=== PATIENT | female | born 1965 | race Caucasian/White ===

== ENCOUNTER 2017-08-28 02:32 | Inpatient (IN) | payer MEDICARE, MEDICAID ==
[~2017-08-28] VITALS: Ht 152.4 cm; Wt 110.7 kg
[~2017-08-28 02:32] MED LIST: ADVAIR 250/501 DISK INH; ALDACTONE25 MG PO; AMBIEN5 MG PO; ATROVENT 0.02%2.5 ML UPD; BENZTROPINE MESY2 MG PO; BROVANA15 MCG/2 M INH; CELEXA10 MG PO; COLACE100 MG PO; DEPAKOTE ER250 MG PO; EFFEXOR37.5 MG PO; ENULOSE10 G/15 ML PO; HALDOL5 MG PO; HUMULIN R100 U/ML SC; K-DUR20 MEQ PO; KLONOPIN0.5 MG PO; LASIX20 MG PO; LEVAQUIN500 MG PO; MEDROL DOSE PACK4 MG PO; MULTIPLE VITAMI1 TA1 PO; NEURONTIN 300300 MG PO; OXYBUTYNIN CHLOR5 MG PO; RISPERDAL3 MG PO; TYLENOL650 MG RC; VITAMIN D31000 UNI2 PO; ZYPREXA10 MG PO
[2017-08-28 03:09] LABS: BASOPHILS 0.2 % (0-2); EOSINOPHILS 0.5 % (0-7); HEMATOCRIT 43.9 % (36.0-48.0); HEMOGLOBIN 13.5 g/dL (12-16); IMMATURE GRANULOCYTES 2.1 % (0-5); LYMPHOCYTES 21.6 % (15-50); MCH 29.9 pg (26.0-34.0); MCHC 30.8 g/dL (31.0-37.0); MCV 97.3 fL (80.0-100.0); MONOCYTES 10.1 % (2-11); NEUTROPHILS 65.5 % (40-80); PLATELET COUNT 141 10x3/uL (130-400); RBC 4.51 10x6/uL (4.00-5.40); RDW 15.5 % (11.5-14.5); WBC 8.7 10x3/uL (4.8-10.8)
[2017-08-28 03:28] LABS: APPEARANCE CLEAR (CLEAR); BILIRUBIN NEGATIVE (NEGATIVE); COLOR YELLOW (YELLOW); GLUCOSE NEGATIVE (NEGATIVE); KETONE MODERATE mg/dL (NEGATIVE); NITRITE NEGATIVE (NEGATIVE); PROTEIN NEGATIVE (NEGATIVE); UROBILINOGEN NORMAL (NORMAL)
[2017-08-28 03:32] LABS: ALKALINE PHOSPHATASE 52 U/L (46-116); ALT (SGPT) 30 U/L (10-68); BILIRUBIN - TOTAL 0.37 mg/dL (0.2-1.3); CALC OSMOLALITY 282 mosm/kg (275-300); CALCIUM 8.3 mg/dL (8.5-10.1); CARBON DIOXIDE 36.3 mmol/L (21.0-32.0); CHLORIDE - SERUM 100 mmol/L (98-107); CREATININE - SERUM 0.8 mg/dL (0.6-1.3); GLUCOSE 119 mg/dL (74-106); POTASSIUM - SERUM 4.2 mmol/L (3.5-5.1); PROTEIN - SERUM 8.5 g/dL (6.4-8.2); SODIUM 142 mmol/L (136-145); UREA NITROGEN 9 mg/dL (7-18); eGFR NON AFRICAN AMERICAN 79 mL/min (90-120)
[2017-08-28 03:41] LABS: LIPASE 54 U/L (73-393); PRO BNP 129 pg/mL (0-125); VALPROIC ACID (DEPAKOTE) 59.6 ug/mL (50.0-100.0)
[2017-08-28 03:44] LABS: TROPONIN-I < 0.017 ng/mL (0.000-0.060)
[2017-08-28 03:44] LABS: UDS - AMPHET NEGATIVE QUAL (NEGATIVE); UDS - BARB NEGATIVE QUAL (NEGATIVE); UDS - BENZO NEGATIVE QUAL (NEGATIVE); UDS - COCAINE NEGATIVE QUAL (NEGATIVE); UDS - OPIATE NEGATIVE QUAL (NEGATIVE); UDS - PCP NEGATIVE QUAL (NEGATIVE); UDS - THC NEGATIVE QUAL (NEGATIVE)
[2017-08-28 04:00] VITALS: BP 159/104
[2017-08-28 09:15] VITALS: BP 123/48
[2017-08-28 11:48] VITALS: BP 100/81
[2017-08-28 13:22] LABS: APPEARANCE CLOUDY (CLEAR); BILIRUBIN NEGATIVE (NEGATIVE); COLOR RED (YELLOW); GLUCOSE NEGATIVE (NEGATIVE); KETONE NEGATIVE (NEGATIVE); NITRITE NEGATIVE (NEGATIVE); PROTEIN 3+ mg/dL (NEGATIVE); SPECIFIC GRAVITY 1.015 (1.005-1.020); UROBILINOGEN NORMAL (NORMAL)
[2017-08-28 13:23] LABS: BACTERIA FEW /hpf (NONE SEEN); EPITHELIAL CELLS 0-5 /hpf (0-5); RED CELLS - URINE 25-50 /hpf (0-5); WHITE CELLS - URINE 0-5 /hpf (0-5)
[2017-08-28 16:43] VITALS: BP 132/51
[2017-08-28 17:12] LABS: HEMOGLOBIN A1C 6.3 % (4.8-6.0)
[2017-08-28 21:26] VITALS: BP 144/66
[2017-08-29 01:03] VITALS: BP 140/55
[2017-08-29 04:54] VITALS: BP 140/70
[2017-08-29 06:04] LABS: BASOPHILS 0.1 % (0-2); EOSINOPHILS 0 % (0-7); HEMOGLOBIN 13.2 g/dL (12-16); IMMATURE GRANULOCYTES 2.3 % (0-5); LYMPHOCYTES 9.8 % (15-50); MCH 29.8 pg (26.0-34.0); NEUTROPHILS 83.8 % (40-80); PLATELET COUNT 166 10x3/uL (130-400); RBC 4.43 10x6/uL (4.00-5.40); RDW 15.5 % (11.5-14.5); WBC 9.7 10x3/uL (4.8-10.8)
[2017-08-29 06:05] LABS: MCV 99.3 fL (80.0-100.0)
[2017-08-29 07:02] LABS: ALBUMIN 2.7 g/dL (3.4-5.0); ALKALINE PHOSPHATASE 54 U/L (46-116); ALT (SGPT) 30 U/L (10-68); CALCIUM 8.2 mg/dL (8.5-10.1); CARBON DIOXIDE 37.7 mmol/L (21.0-32.0); CHLORIDE - SERUM 100 mmol/L (98-107); CREATININE - SERUM 0.7 mg/dL (0.6-1.3); MAGNESIUM - SERUM 2.4 mg/dL (1.8-2.4); PHOSPHOROUS 4.5 mg/dL (2.5-4.9); POTASSIUM - SERUM 4.3 mmol/L (3.5-5.1); PRO BNP 301 pg/mL (0-125); PROTEIN - SERUM 8.2 g/dL (6.4-8.2); SODIUM 141 mmol/L (136-145); THYROID STIMULATING HORMONE 0.65 uIU/mL (0.36-3.74); UREA NITROGEN 9 mg/dL (7-18); eGFR NON AFRICAN AMERICAN > 90 mL/min (90-120)
[2017-08-29 07:03] LABS: CALC OSMOLALITY 284 mosm/kg (275-300); GLUCOSE 194 mg/dL (74-106)
[2017-08-29 07:39] VITALS: BP 110/56
[2017-08-29 14:32] VITALS: Ht 152.4 cm; Wt 110.7 kg
[2017-08-29 15:59] VITALS: BP 130/66
[2017-08-29 19:00] VITALS: BP 128/62
[2017-08-30] VITALS: BP 118/70
[2017-08-30 04:00] VITALS: BP 133/73
[2017-08-30 06:25] LABS: BASOPHILS 0.1 % (0-2); EOSINOPHILS 0 % (0-7); HEMATOCRIT 44.8 % (36.0-48.0); HEMOGLOBIN 13.7 g/dL (12-16); IMMATURE GRANULOCYTES 1.9 % (0-5); MCH 29.8 pg (26.0-34.0); MCHC 30.6 g/dL (31.0-37.0); MCV 97.6 fL (80.0-100.0); MEAN PLATELET VOLUME 9.8 fL (7.4-10.4); MONOCYTES 8.5 % (2-11); NEUTROPHILS 75.5 % (40-80); PLATELET COUNT 195 10x3/uL (130-400); RBC 4.59 10x6/uL (4.00-5.40); RDW 15.5 % (11.5-14.5); WBC 10.4 10x3/uL (4.8-10.8)
[2017-08-30 06:38] LABS: ALKALINE PHOSPHATASE 53 U/L (46-116); CALC OSMOLALITY 282 mosm/kg (275-300); CALCIUM 8.5 mg/dL (8.5-10.1); CARBON DIOXIDE 36.8 mmol/L (21.0-32.0); CHLORIDE - SERUM 100 mmol/L (98-107); CREATININE - SERUM 0.8 mg/dL (0.6-1.3); GLUCOSE 150 mg/dL (74-106); POTASSIUM - SERUM 3.7 mmol/L (3.5-5.1); PROTEIN - SERUM 8.4 g/dL (6.4-8.2); SODIUM 141 mmol/L (136-145); UREA NITROGEN 11 mg/dL (7-18); eGFR NON AFRICAN AMERICAN 79 mL/min (90-120)
[2017-08-30 06:39] LABS: ALT (SGPT) 38 U/L (10-68)
[2017-08-30 08:06] VITALS: BP 115/56
[2017-08-30 12:39] VITALS: BP 161/58
[2017-08-30 15:55] VITALS: BP 123/67
[2017-08-30 20:00] VITALS: BP 145/76
[2017-08-31] VITALS (7 sets, daily range): BP systolic 108–142; BP diastolic 54–75
[2017-08-31 06:29] LABS: BASOPHILS 0.1 % (0-2); EOSINOPHILS 0 % (0-7); HEMOGLOBIN 13.9 g/dL (12-16); MCH 29.9 pg (26.0-34.0); MCHC 30.9 g/dL (31.0-37.0); MCV 96.8 fL (80.0-100.0); MEAN PLATELET VOLUME 10.4 fL (7.4-10.4); MONOCYTES 6.2 % (2-11); NEUTROPHILS 77.7 % (40-80); PLATELET COUNT 198 10x3/uL (130-400); RBC 4.65 10x6/uL (4.00-5.40); RDW 15.9 % (11.5-14.5)
[2017-08-31 06:57] LABS: ALBUMIN 2.8 g/dL (3.4-5.0); ALKALINE PHOSPHATASE 47 U/L (46-116); ALT (SGPT) 37 U/L (10-68); CALC OSMOLALITY 288 mosm/kg (275-300); CARBON DIOXIDE 38.2 mmol/L (21.0-32.0); CHLORIDE - SERUM 100 mmol/L (98-107); CREATININE - SERUM 0.8 mg/dL (0.6-1.3); GLUCOSE 169 mg/dL (74-106); POTASSIUM - SERUM 3.6 mmol/L (3.5-5.1); PROTEIN - SERUM 7.8 g/dL (6.4-8.2); SODIUM 142 mmol/L (136-145); eGFR NON AFRICAN AMERICAN 79 mL/min (90-120)
[2017-08-31 07:02] LABS: UREA NITROGEN 17 mg/dL (7-18)
[2017-09-01 04:00] VITALS: BP 116/51
[2017-09-01 06:14] LABS: BASOPHILS 0.1 % (0-2); EOSINOPHILS 0.1 % (0-7); HEMATOCRIT 47.6 % (36.0-48.0); HEMOGLOBIN 14.6 g/dL (12-16); IMMATURE GRANULOCYTES 1.4 % (0-5); LYMPHOCYTES 25.5 % (15-50); MCH 29.7 pg (26.0-34.0); MCHC 30.7 g/dL (31.0-37.0); MCV 96.9 fL (80.0-100.0); MEAN PLATELET VOLUME 9.6 fL (7.4-10.4); MONOCYTES 12.2 % (2-11); NEUTROPHILS 60.7 % (40-80); RBC 4.91 10x6/uL (4.00-5.40); RDW 15.8 % (11.5-14.5)
[2017-09-01 06:17] LABS: PLATELET COUNT 154 10x3/uL (130-400)
[2017-09-01 06:47] LABS: ALBUMIN 2.7 g/dL (3.4-5.0); ALKALINE PHOSPHATASE 38 U/L (46-116); ALT (SGPT) 40 U/L (10-68); BILIRUBIN - TOTAL 0.42 mg/dL (0.2-1.3); CALCIUM 8.1 mg/dL (8.5-10.1); CHLORIDE - SERUM 102 mmol/L (98-107); CREATININE - SERUM 0.8 mg/dL (0.6-1.3); PROTEIN - SERUM 7.3 g/dL (6.4-8.2); SODIUM 144 mmol/L (136-145); UREA NITROGEN 19 mg/dL (7-18); eGFR NON AFRICAN AMERICAN 79 mL/min (90-120)
[2017-09-01 06:51] LABS: CALC OSMOLALITY 288 mosm/kg (275-300); GLUCOSE 106 mg/dL (74-106)
[2017-09-01 08:47] VITALS: BP 116/48
[2017-09-01 12:33] VITALS: BP 112/65
[2017-09-01 16:28] VITALS: BP 111/62
[2017-09-01 21:44] VITALS: BP 116/64
[2017-09-02 01:15] VITALS: BP 105/56
[2017-09-02 05:58] VITALS: BP 99/57
[2017-09-02 07:31] LABS: BASOPHILS 0.1 % (0-2); EOSINOPHILS 0.4 % (0-7); HEMATOCRIT 46.8 % (36.0-48.0); HEMOGLOBIN 14.3 g/dL (12-16); IMMATURE GRANULOCYTES 1.1 % (0-5); LYMPHOCYTES 26.3 % (15-50); MCH 29.7 pg (26.0-34.0); MCHC 30.6 g/dL (31.0-37.0); MCV 97.3 fL (80.0-100.0); MEAN PLATELET VOLUME 9.6 fL (7.4-10.4); MONOCYTES 9.2 % (2-11); NEUTROPHILS 62.9 % (40-80); PLATELET COUNT 149 10x3/uL (130-400); RBC 4.81 10x6/uL (4.00-5.40); RDW 15.6 % (11.5-14.5); WBC 7.4 10x3/uL (4.8-10.8)
[2017-09-02 07:49] LABS: ALBUMIN 2.8 g/dL (3.4-5.0); ANION GAP 4.7 mmol/L (8-16); BILIRUBIN - TOTAL 0.52 mg/dL (0.2-1.3); CARBON DIOXIDE 39.8 mmol/L (21.0-32.0); CREATININE - SERUM 0.9 mg/dL (0.6-1.3); POTASSIUM - SERUM 3.5 mmol/L (3.5-5.1); PROTEIN - SERUM 6.9 g/dL (6.4-8.2)
[2017-09-02 08:06] VITALS: BP 113/65
[2017-09-02 11:18] VITALS: BP 110/47
[2017-09-02] MEDS ORDERED: ALDACTONE25 MG PO (12:29)
[2017-09-02] MEDS ORDERED: LASIX20 MG PO (12:31)
[2017-09-02] MEDS ORDERED: PULMICORT0.5 MG/21 UPD (12:31)
[2017-09-02 15:42] VITALS: BP 97/55
== END 2017-09-02 18:06 | DRG 193 ==
LOC: D.ER 02:32 → D.M2 04:49
PROVIDERS: Family Medicine; Internal Medicine Pulmonary Disease
PROC: 0T9B70Z Drainage of Bladder with Drainage Device, Via Natural or Artificial Opening (ICD-10-PCS; principal; 2017-08-28)
DX: J18.9 Pneumonia, unspecified organism (principal); J96.22 Acute and chronic respiratory failure with hypercapnia; J96.21 Acute and chronic respiratory failure with hypoxia; I50.33 Acute on chronic diastolic (congestive) heart failure; J44.0 Chronic obstructive pulmonary disease with (acute) lower respiratory infection; J44.1 Chronic obstructive pulmonary disease with (acute) exacerbation; Z68.43 Body mass index [BMI] 50.0-59.9, adult; J98.11 Atelectasis; E87.2 Acidosis; E11.9 Type 2 diabetes mellitus without complications; I11.0 Hypertensive heart disease with heart failure; Z66 Do not resuscitate; F20.9 Schizophrenia, unspecified; E66.01 Morbid (severe) obesity due to excess calories; G47.33 Obstructive sleep apnea (adult) (pediatric); E78.5 Hyperlipidemia, unspecified; I34.0 Nonrheumatic mitral (valve) insufficiency; F22 Delusional disorders

== ENCOUNTER 2019-01-11 08:49 | Emergency (ER) | payer MEDICARE, MEDICAID ==
[~2019-01-11] VITALS: Ht 152.4 cm; Wt 118.2 kg
[~2019-01-11 08:49] MED LIST changes: +PULMICORT0.5 MG/21 UPD
[2019-01-11 08:55] VITALS: Ht 152.4 cm; Wt 118.2 kg
[2019-01-11] MEDS ORDERED: ACETAMINOPHEN500 M1 PO (09:17)
[2019-01-11] MEDS ORDERED: ADVAIR HFA 230-12 GM INH (09:19)
[2019-01-11] MEDS ORDERED: BAYER CHEWABLE81 MG PO (09:20)
[2019-01-11] MEDS ORDERED: TEGRETOL200 MG PO (09:22)
[2019-01-11] MEDS ORDERED: IPRAT-ALBUT 0.5-3 ML UPD (09:23)
[2019-01-11] MEDS ORDERED: FISH OIL 1,0001 CA1 PO (09:24)
[2019-01-11] MEDS ORDERED: GABAPENTIN100 MG PO (09:25)
[2019-01-11] MEDS ORDERED: HALDOL ORA30 MG/15 M PO (09:26)
[2019-01-11] MEDS ORDERED: KLONOPIN0.5 MG PO (09:27)
[2019-01-11] MEDS ORDERED: ANORO ELLIPTA1 EACH INH (09:29)
[2019-01-11] MEDS ORDERED: CHRONULAC30 ML PO (09:31)
[2019-01-11] MEDS ORDERED: LASIX40 MG PO (09:32)
[2019-01-11] MEDS ORDERED: MULTI-DAY VITAM1 TAB PO (09:34)
[2019-01-11] MEDS ORDERED: MIRALAX17 GM PO (09:34)
[2019-01-11] MEDS ORDERED: PROMOD LIQUID P30 M1 PO (09:38)
[2019-01-11] MEDS ORDERED: SENNA LAXATIVE8.6 MG PO (09:40)
[2019-01-11] MEDS ORDERED: OMEPRAZOLE20 M1 PO (09:41)
[2019-01-11] MEDS ORDERED: TYLENOL W/CODEI1 TAB PO (09:42)
[2019-01-11] MEDS ORDERED: ZYPREXA10 MG PO (09:43)
[2019-01-11 09:50] LABS: ALBUMIN 3.4 g/dL (3.4-5.0); ALKALINE PHOSPHATASE 94 U/L (46-116); ALT (SGPT) 18 U/L (10-68); BILIRUBIN - TOTAL 0.46 mg/dL (0.2-1.3); CALC OSMOLALITY 263 mosm/kg (275-300); CALCIUM 9.3 mg/dL (8.5-10.1); CHLORIDE - SERUM 99 mmol/L (98-107); CREATININE - SERUM 0.5 mg/dL (0.6-1.3); GLUCOSE 120 mg/dL (74-106); POTASSIUM - SERUM 3.9 mmol/L (3.5-5.1); PROTEIN - SERUM 8.3 g/dL (6.4-8.2); SODIUM 132 mmol/L (136-145); UREA NITROGEN 6 mg/dL (7-18); eGFR NON AFRICAN AMERICAN > 90 mL/min (90-120)
[2019-01-11 09:53] LABS: BASOPHILS 0.1 % (0-2); EOSINOPHILS 0.8 % (0-7); HEMATOCRIT 54.3 % (36.0-48.0); HEMOGLOBIN 16.7 g/dL (12-16); IMMATURE GRANULOCYTES 0.4 % (0-5); MCH 25.8 pg (26.0-34.0); MCHC 30.8 g/dL (31.0-37.0); MCV 83.8 fL (80.0-100.0); MEAN PLATELET VOLUME 10.2 fL (7.4-10.4); MONOCYTES 6.3 % (2-11); NEUTROPHILS 80.4 % (40-80); PLATELET COUNT 148 10x3/uL (130-400); RBC 6.48 10x6/uL (4.00-5.40); RDW 19.2 % (11.5-14.5); WBC 7.8 10x3/uL (4.8-10.8)
[2019-01-11 10:03] LABS: CKMB 1.9 U/L (0.0-3.6); CREATINE KINASE 48 UL (21-215); MAGNESIUM - SERUM 1.9 mg/dL (1.8-2.4); THYROID STIMULATING HORMONE 1.62 uIU/mL (0.36-3.74)
[2019-01-11 10:04] LABS: TROPONIN-I < 0.017 ng/mL (0.000-0.060)
[2019-01-11 13:38] VITALS: BP 140/87
== END 2019-01-11 13:38 ==
LOC: D.ER 08:49
PROVIDERS: Family Medicine
DX: E86.0 Dehydration (principal); R53.1 Weakness

== ENCOUNTER → 2019-01-22 07:54 | Outpatient (CLI) | payer MEDICARE ==
[2019-01-11 08:55] VITALS: BMI 50.8
[~2019-01-22 07:54] MED LIST changes: +ACETAMINOPHEN500 M1 PO; +ADVAIR HFA 230-12 GM INH; +ANORO ELLIPTA1 EACH INH; +BAYER CHEWABLE81 MG PO; +CHRONULAC30 ML PO; +FISH OIL 1,0001 CA1 PO; +GABAPENTIN100 MG PO; +HALDOL ORA30 MG/15 M PO; +IPRAT-ALBUT 0.5-3 ML UPD; +LASIX40 MG PO; +MIRALAX17 GM PO; +MULTI-DAY VITAM1 TAB PO; +OMEPRAZOLE20 M1 PO; +PROMOD LIQUID P30 M1 PO; +SENNA LAXATIVE8.6 MG PO; +TEGRETOL200 MG PO; +TYLENOL W/CODEI1 TAB PO
== END | disposition home or self-care (01) ==
LOC: D.MRI 07:54
PROVIDERS: ATTEND Legal Medicine
DX: R20.0 Anesthesia of skin (principal); R53.1 Weakness